=== PATIENT | female | born 2000 | race Two or more races ===

== ENCOUNTER 2020-11-02 09:40 | Observation (INO) | payer MEDICAID ==
[2020-11-02] MEDS ORDERED: PREN-96 PO (12:57)
== END 2020-11-02 13:19 | disposition home or self-care (01) ==
LOC: LDRP 09:40
PROVIDERS: ADMIT Obstetrics & Gynecology; ATTEND Obstetrics & Gynecology
DX: O36.5930 Maternal care for other known or suspected poor fetal growth, third trimester, not applicable or unspecified (principal); Z3A.37 37 weeks gestation of pregnancy
CPT/HCPCS: 59025; 76805; 76818; 81002; G0378

== ENCOUNTER 2020-11-04 16:40 | Inpatient (IN) | payer MEDICAID ==
[~2020-11-04] VITALS: Ht 167.6 cm; Wt 60.3 kg
[~2020-11-04 16:40] MED LIST: PREN-96 PO
[2020-11-04] MEDS ORDERED: LACT. RINGERS/OXYTOCIN 20UNITS 1,000 ML IV ONE (17:15)
[2020-11-04] MEDS ORDERED: METHYLERGONOVINE MALEATE 0.2 MG/ML AMP IM ONE (17:15)
[2020-11-04] MEDS ORDERED: IBUPROFEN 600 MG TAB PO PRN (17:15)
[2020-11-04] MEDS ORDERED: ACETAMINOPHEN 325 MG TAB PO PRN (17:15)
[2020-11-04] MEDS ORDERED: WITCH HAZEL-GLYCERIN PAD TOP PRN (17:30)
[2020-11-04] MEDS ORDERED: PHISODERM TOP SOLN 240ML BTL TOP PRN (17:30)
[2020-11-04] MEDS ORDERED: LIDOCAINE 2%HCL (LOCAL ANESTH.) INJ 20ML MDV IJ ONE (17:30)
[2020-11-04] MEDS ORDERED: DERMOPLAST 60ML BOTTLE TOP PRN (17:30)
[2020-11-04] MEDS ORDERED: LACT. RINGERS/OXYTOCIN 20UNITS 1,000 ML IV SCH (18:15)
[2020-11-04 18:25] LABS: Basophils # (auto) 0.1 10 ^3/uL (0-0.2); Basophils % (auto) 0.4 % (0.0-2.0); Eosinophils # (auto) 0 10 ^3/uL (0-0.8); Eosinophils % (auto) 0.1 % (0.0-7.0); Hematocrit 32.7 % (36.0-46.0); Hemoglobin 11.2 g/dL (12.2-16.2); Lymphocytes # (auto) 1.5 10 ^3/uL (0.4-5.4); Lymphocytes % (auto) 9.1 % (10.0-50.0); Mean Corpuscular Hemoglobin 29.1 pg (28.0-32.0); Mean Corpuscular Hgb Conc. 34.3 g/dL (32.0-36.0); Mean Corpuscular Volume 84.7 fL (80.0-100.0); Monocytes # (auto) 0.8 10 ^3/uL (0-1.3); Monocytes % (auto) 4.6 % (0.0-12.0); Neutrophils # (auto) 14.3 10 ^3/uL (1.6-8.6); Neutrophils % (auto) 85.8 % (37.0-80.0); Platelet Count (auto) 244 10^3/uL (140-450); Red Blood Cells 3.86 10^6/uL (4.0-5.20); Red Cell Distribution Width 13.6 % (11.8-14.3); White Blood Cell 16.6 10^3/uL (4.4-10.8)
[2020-11-04 18:39] LABS: Albumin 2.3 g/dL (3.4-5.0); Calcium 7.7 mg/dL (8.5-10.1); Potassium 3.6 mmol/L (3.5-5.1)
[2020-11-04 18:40] LABS: INR 1.02 (0.9-1.15); Partial Thromboplastin Time 26.8 sec (23.0-31.2)
[2020-11-04 18:43] LABS: Urine Bacteria NONE SEEN /hpf (None Seen); Urine Blood 1+ /uL (Negative); Urine Mucus FEW (None Seen); Urine Specific Gravity 1.021 (1.001-1.035); Urine WBC 1 /hpf (0 - 5)
[2020-11-04 18:45] LABS: BUN/Creatinine Ratio 13.7; Bilirubin, Total 0.3 mg/dL (0.2-1.0)
[2020-11-04 18:59] LABS: Alcohol, Urine < 3.0 mg/dL (0-10); Amphetamine Screen, Urine NEGATIVE (NEGATIVE); Barbiturate Scree,Urine NEGATIVE (NEGATIVE); Benzodiazephine Screen, Urine NEGATIVE (NEGATIVE); Cannabinoid Screen, Urine NEGATIVE (NEGATIVE); Cocaine Screen, Urine NEGATIVE (NEGATIVE); Opiate Scree,Urine NEGATIVE (NEGATIVE); Phencyclidine Screen, Urine NEGATIVE (NEGATIVE)
[2020-11-04 23:25] VITALS: BP 109/65
[2020-11-05 03:11] VITALS: BP 122/76
[2020-11-05 07:10] VITALS: BP 112/67
[2020-11-05 11:10] VITALS: BP 101/64
[2020-11-05 15:18] VITALS: BP 119/64
[2020-11-05 19:12] VITALS: BP 116/85
[2020-11-05 20:23] VITALS: BP 116/78
[2020-11-06 06:06] LABS: RPR Non Reactive (Non Reactive)
== END 2020-11-05 20:23 | disposition home or self-care (01) | DRG 560 ==
LOC: LDRP 16:40
PROVIDERS: ADMIT Obstetrics & Gynecology; ATTEND Obstetrics & Gynecology
PROC: 10E0XZZ Delivery of Products of Conception, External Approach (ICD-10-PCS; principal; 2020-11-04)
DX: Z39.0 Encounter for care and examination of mother immediately after delivery (principal); Z20.822 Contact with and (suspected) exposure to COVID-19
CPT/HCPCS: 36415; 59414; 80053; 80307; 81001; 85025; 85610; 85730; 86592; 86850; 86900; 86901; 87426; 96365; 96366; G0378

== ENCOUNTER 2022-10-01 16:28 | Emergency (ER) | payer MEDICAID ==
[~2022-10-01] VITALS: Ht 165.1 cm; Wt 59.8 kg
[2022-10-01 17:11] VITALS: BP 105/72
[2022-10-01] MEDS ORDERED: ACETAMINOPHEN 325 MG TAB PO ONE (17:15)
[2022-10-01] MEDS ORDERED: SODIUM CHLORIDE 0.9% 1,000 ML IV ONE (17:15)
[2022-10-01] MEDS ORDERED: IBUPROFEN 600 MG TAB PO ONE (17:30)
[2022-10-01] MEDS ORDERED: cefTRIAXone 1GM/50ML D5W 50 ML IV ONE (17:30)
[2022-10-01] MEDS ORDERED: ONDANSETRON HCL 4 MG/2 ML VIAL IV ONE (17:30)
[2022-10-01 17:44] LABS: Urine Bacteria NONE SEEN /hpf (None Seen); Urine Blood TRACE /uL (Negative); Urine Mucus FEW (None Seen); Urine Specific Gravity 1.033 (1.001-1.035); Urine WBC 11 /hpf (0 - 5)
[2022-10-01] MEDS ORDERED: KETOROLAC TROMETH 30 MG/ML 1ML VIAL IV ONE (18:00)
[2022-10-01] MEDS ORDERED: CIPR-173 PO (18:06)
[2022-10-01] MEDS ORDERED: IBUP600T27 PO (18:06)
== END 2022-10-01 18:33 | disposition home or self-care (01) ==
LOC: ER 16:28
DX: N39.0 Urinary tract infection, site not specified (principal); J03.90 Acute tonsillitis, unspecified; M62.830 Muscle spasm of back; M54.50 Low back pain, unspecified; Z32.02 Encounter for pregnancy test, result negative; Z88.6 Allergy status to analgesic agent
CPT/HCPCS: 81001; 81025; 96365; 96375; 99284; J0696; J1885; J2405; J7030

== ENCOUNTER 2023-04-26 21:19 | Emergency (ER) | payer MEDICAID ==
[~2023-04-26] VITALS: Ht 160 cm; Wt 58.0 kg
[~2023-04-26 21:19] MED LIST changes: +CIPR-173 PO; +IBUP-1454 PO
[2023-04-27] MEDS ORDERED: IBUP-1455 PO (00:09)
[2023-04-27] MEDS ORDERED: IBUPROFEN 800 MG TAB PO ONE (00:15)
[2023-04-27] MEDS ORDERED: MUPI2CRE17 EX (00:16)
[2023-04-27 01:26] VITALS: BP 109/74; PULSE 76; RESP 18; TEMP 98; O2SAT 99
== END 2023-04-27 01:35 | disposition home or self-care (01) ==
LOC: ER 21:19
DX: S99.912A Unspecified injury of left ankle, initial encounter (principal); M25.572 Pain in left ankle and joints of left foot; Z79.899 Other long term (current) drug therapy; W18.39XA Other fall on same level, initial encounter; Y93.89 Activity, other specified; Y92.89 Other specified places as the place of occurrence of the external cause; Y99.8 Other external cause status
CPT/HCPCS: 29515; 73610

== ENCOUNTER 2023-12-10 22:15 | Emergency (ER) | payer MEDICAID ==
[~2023-12-10] VITALS: Ht 162.6 cm; Wt 60.1 kg
[~2023-12-10 22:15] MED LIST changes: +IBUP-1455 PO; +MUPI2CRE17 EX
[2023-12-10 22:28] VITALS: BP 137/81; PULSE 101; RESP 18; TEMP 98.7; O2SAT 98
[2023-12-10 23:06] LABS: Urine Bacteria None Seen /hpf (None Seen)
[2023-12-10 23:19] LABS: Urine Blood 3+ /uL (Negative); Urine Clarity Turbid (Clear); Urine Color LIGHT RED (Yellow); Urine Protein, UAD TRACE (Negative); Urine Specific Gravity 1.017 (1.001-1.035); Urine Urobilinogen Normal (Negative); Urine WBC 73 /hpf (0 - 5)
[2023-12-10 23:38] LABS: Basophils # (auto) 0 10 ^3/uL (0-0.2); Basophils % (auto) 0.3 % (0.0-2.0); Eosinophils # (auto) 0.1 10 ^3/uL (0-0.8); Eosinophils % (auto) 1.1 % (0.0-7.0); Hematocrit 41.2 % (36.0-46.0); Hemoglobin 13.9 g/dL (12.2-16.2); Lymphocytes # (auto) 2.7 10 ^3/uL (0.4-5.4); Lymphocytes % (auto) 26.6 % (10.0-50.0); Mean Corpuscular Hemoglobin 29.6 pg (28.0-32.0); Mean Corpuscular Hgb Conc. 33.8 g/dL (32.0-36.0); Mean Corpuscular Volume 87.8 fL (80.0-100.0); Monocytes # (auto) 0.6 10 ^3/uL (0-1.3); Monocytes % (auto) 5.8 % (0.0-12.0); Neutrophils # (auto) 6.8 10 ^3/uL (1.6-8.6); Neutrophils % (auto) 66.2 % (37.0-80.0); Red Cell Distribution Width 13.4 % (11.8-14.3); White Blood Cell 10.2 10^3/uL (4.4-10.8)
[2023-12-11 00:06] LABS: Alanine Aminotransferase 21 U/L (7-40); Albumin 4.4 g/dL (3.2-4.8); Alkaline Phosphatase 70 U/L (46-116); Anion Gap 7 (5-15); Aspartate Aminotransferase 17 U/L (13-40); BUN/Creatinine Ratio 12.3 (10.0-20.0); Bilirubin, Total 0.4 mg/dL (0.2-1.0); Blood Urea Nitrogen 7 mg/dL (9-23); Calcium 9.4 mg/dL (8.7-10.4); Carbon Dioxide 23 mmol/L (20-30); Chloride 109 mmol/L (98-107); Glucose 103 mg/dL (74-106); Potassium 3.6 mmol/L (3.5-5.1); Sodium 139 mmol/L (136-145); Total Protein 7.5 g/dL (5.7-8.2)
== END 2023-12-11 01:29 | disposition home or self-care (01) ==
LOC: ER 22:15
DX: N93.8 Other specified abnormal uterine and vaginal bleeding (principal); R10.2 Pelvic and perineal pain; R51.9 Headache, unspecified; Z32.02 Encounter for pregnancy test, result negative
CPT/HCPCS: 36415; 80053; 81001; 81025; 84702; 85025; 86850; 86900; 86901

== ENCOUNTER 2024-03-22 14:02 | Emergency (ER) | payer MEDICAID ==
[~2024-03-22] VITALS: Ht 160 cm; Wt 60.8 kg
[2024-03-22 16:00] LABS: Urine Bacteria None Seen /hpf (None Seen)
[2024-03-22] MEDS ORDERED: ACETAMINOPHEN 500 MG TAB PO ONE (16:00)
[2024-03-22 16:13] VITALS: BP 139/97; PULSE 93; RESP 18; TEMP 99.2; O2SAT 97
[2024-03-22 16:27] LABS: Urine Amorphous Crystal FEW /hpf (None Seen); Urine Blood Negative /uL (Negative); Urine Clarity Ex.Turbid (Clear); Urine Color Light-Brown (Yellow); Urine Mucus FEW (None Seen); Urine Protein, UAD Negative (Negative); Urine Specific Gravity 1.019 (1.001-1.035); Urine Urobilinogen Normal (Negative); Urine WBC 9 /hpf (0 - 5)
[2024-03-22] MEDS ORDERED: IBUP1TAB4 PO (16:33)
[2024-03-22] MEDS: KETOROLAC TROMETH 30 MG/ML 1ML VIAL IM ONE (16:46)
== END 2024-03-22 17:15 | disposition home or self-care (01) ==
LOC: ER 14:02
DX: R51.9 Headache, unspecified (principal); R11.0 Nausea
CPT/HCPCS: 81001; 81025; 96372; 99283; J1885

== ENCOUNTER 2025-03-06 13:43 | Emergency (ER) | payer MEDICAID ==
[~2025-03-06] VITALS: Ht 160 cm; Wt 56.4 kg
[~2025-03-06 13:43] MED LIST changes: +IBUP1TAB4 PO
[2025-03-06 13:48] VITALS: BP 112/71; PULSE 117; RESP 16; TEMP 98.7; O2SAT 98
[2025-03-06 14:16] LABS: Hematocrit 39.1 % (36.0-46.0); Hemoglobin 13.6 g/dL (12.2-16.2); Mean Corpuscular Hemoglobin 29.7 pg (28.0-32.0); Mean Corpuscular Volume 85.0 fL (80.0-100.0); Nucleated Red Blood Cells % 0.0 %
[2025-03-06 14:23] LABS: Chloride 106 mmol/L (98-107); Potassium 3.9 mmol/L (3.5-5.1); Sodium 137 mmol/L (136-145)
[2025-03-06 14:24] LABS: Anion Gap 11 (5-15); Calcium 8.7 mg/dL (8.7-10.4); Carbon Dioxide 20 mmol/L (20-31)
[2025-03-06 14:29] LABS: BUN/Creatinine Ratio 14.0 (10.0-20.0); Glucose 87 mg/dL (74-106)
[2025-03-06 14:30] LABS: Blood Urea Nitrogen 7 mg/dL (9-23); Lipase 37 U/L (12-53)
--- NOTE | 2025-03-06 14:39 | DVH ---
Procedure: US OB ULTRASOUND COMP LESS 14WKS Study Date and Requested Time: 03/06/2025 02:02 PM Study Description: US OB ULTRASOUND COMP LESS 14WKS History: n/v/d, 13 wk preg Comparison: OB ULTRASOUND COMP GTR 14 WKS on DOS: 11/02/20 Technique: Multiple high resolution trotter-scale images obtained of the uterus, fetus, and other gestat ional components with M-mode scanning for evaluation of heart rate. Findings: Single live intrauterine with gestational sac, and fetus visualized. heart rate of 1 71 bpm. Estimated gestational age 13 weeks/ 1 day based on crown-rump length of 6.93 cm. Placenta is visualized forming posteriorly Uterus measures 4.3 x 9.5 x 5.9 cm in size. Cervical os appears closed. Bilateral ovaries are not visualized. No evidence of free fluid in the cul-de-sac. Impression: Single live intrauterine with heart rate of 171 bpm. Estimated gestational age 13 wee ks/ 1 day with estimated date of confinement 09/10/2025. Bilateral ovaries are not visualized.
[2025-03-06] MEDS: SODIUM CHLORIDE 0.9% 1,000 ML IV ONE (15:30)
--- NOTE | 2025-03-06 15:34 | ED.PDOC ---
GI ASSESSMENT HPI Comments 24 year old female presents to the ED with a chief compliant of nausea/vomiting onset today (03/06/25) around 05:00. Patient states she woke up this morning around 05:00, experiencing nausea, vomiting, diarrhea. She is currently 13 weeks , follows up with OBGYN, takes pre- vitamins. P:2. Denies any PMHx as well as vaginal bleeding, vaginal discharge, abdominal pain, dysuria, hematuria, hematemesis, fever, chills, headache, dizziness. No other symptoms or modifying factors present at this time. Chief Complaint: Nausea/Vomiting Time Seen by MD: 15:30 Primary Care Provider: [facility] Reviewed Notes: Medications, Allergies Allergies: Coded Allergies: NO KNOWN ALLERGIES (Unverified , 11/04/20) Home Meds Active Scripts Ibuprofen Micronized (Ibuprofen) 400 Mg Tab, 400 MG PO Q4HPRN PRN, #30 TAB Prov:WILLI CLEMENTE PAC 03/22/24 Mupirocin Calcium (Topical) (MUPIROCIN) 2 % Cre, 2 % EX TID for 7 Days, #1 CRE Prov:TAYLOR BARNETTP 04/27/23 Ibuprofen Micronized (Ibuprofen) 800 Mg Tab, 800 MG PO TID PRN for 30 Days, #90 TAB Prov:TAYLOR BARNETTP 04/27/23 Ibuprofen (Ibuprofen) 600 Mg Tab, 1 TAB PO QID, #30 TAB Prov:BUDDY JAMES 10/01/22 Ciprofloxacin Hcl (Cipro) 500 Mg Tab, 1 TAB PO BID, #20 TAB Prov:BUDDY JAMES 10/01/22 Reported Medications Vit W/ Ferrous Fumara ( One Daily) Daily Tab, 1 TAB PO DAILY, #90 TAB 3 Refills 11/02/20 Information Source: Patient, Spouse Mode of Arrival: Ambulatory Timing: Hours Duration: Since onset Prehospital treatment: None Quality: Sharp Severity: Moderate Recent: None Recent Hx of: Current Pain Location: Suprapubic Modifying Factors: Nothing Associated sign and symptoms: Nausea, Vomiting, Diarrhea, Abdominal Pain Past Medical History PAST MEDICAL HISTORY: Denies Surgical History: Denies all surgeries HAT MAKER History: Denies all HAT MAKER Hx Family History Family History: Reviewed,noncontributory to illness Social History Smoker: Non-Smoker Alcohol: Denies ETOH Use Drugs: Denies Drug Use Lives In: Home Constitutional: denies: chills, diaphoresis, fatigue, fever, malaise, sweats, weakness, others EENTM: denies: blurred vision, double vision, ear bleeding, ear discharge, ear drainage, ear pain, ear ringing, eye pain, eye redness, hearing loss, mouth pain, mouth swelling, nasal discharge, nose bleeding, nose congestion, nose pain, photophobia, tearing, throat pain, throat swelling, voice changes, others Respiratory: denies: cough, hemoptysis, orthopnea, SOB at rest, shortness of breath, SOB with excertion, stridor, wheezing, others Cardiovascular: denies: chest pain, dizzy spells, diaphoresis, Dyspnea on exertion, edema, irregular heart beat, left arm pain, lightheadedness, palpitations, PND, syncope, others Gastrointestinal: reports: abdominal pain, diarrhea, nausea, vomiting; denies: abdomen distended, blood streaked bowels, constipated, dysphagia, difficulty swallowing, hematemesis, melena, poor appetite, poor fluid intake, rectal bleeding, rectal pain, others Genitourinary: reports: ; denies: abnormal vagina bleeding, burning, dyspareunia, dysuria, flank pain, frequency, hematuria, incontinence, pain, vagina discharge, urgency, others Neurological: denies: dizziness, fainting, headache, left sided numbness, left sided weakness, numbness, paresthesia, pre-existing deficit, right sided numbness, right sided weakness, seizure, speech problems, tingling, tremors, weakness, others Musculoskeletal: denies: back pain, gout, joint pain, joint swelling, muscle pain, muscle stiffness, neck pain, others Integumetry: denies: bruises, change in color, change in hair/nails, dryness, laceration, lesions, lumps, rash, wounds, others Allergic/Immunocompromised: denies: Difficulty Healing, Frequent Infections, Hives, Itching, others Hematologic/Lymphatic: denies: anemia, blood clots, easy bleeding, easy bruising, swollen glands, others Endocrine: denies: excessive hunger, excessive sweating, excessive thirst, excessive urination, flushing, intolerance to cold, intolerance to heat, unexplained weight gain, unexplained weight loss, others Psychiatric: denies: anxiety, bipolar disorder, depression, hopeless, panic disorder, schizophrenia, sleepless, suicidal, others All Other Systems: Reviewed and Negative Physical Exam General Appearance: Normal HEENT: Normal ENT Inspection, Pharynx Normal, TMs Normal Neck: Full Range of Motion, Non-Tender, Normal, Normal Inspection Respiratory: Chest Non-Tender, Lungs Clear, No Accessory Muscle Use, No Respiratory Distress, Normal Breath Sounds Cardiovascular: No Edema, No JVD, No Murmur, No Gallop, Normal Peripheral Pulses, Regular Rate/Rhythm Breast Exam: Deferred Gastrointestinal: No Organomegaly, Non Tender, No Pulsatile Mass, Normal Bowel Sounds, Soft Genitalia: Deferred Pelvic: Deferred Rectal: Deferred Extremities: No calf tenderness, Normal capillary refill, Normal inspection, Normal range of motion, Non-tender, No pedal edema Musculoskeletal : Apperance: Normal Neurologic: Alert, heat treat technician II-XII nml as Tested, No Motor Deficits, Normal Affect, Normal Mood, No Sensory Deficits Cerebellar Function: Normal Reflexes: Normal Skin: Dry, Normal Color, Warm Lymphatic: No Adenopathy Was a procedure done? Was a procedure done?: No GI differential Dx Differential Diagnosis: Appendicitis, Complete , Incomplete , Inevitable , Missed , Threatened , Abruptio placentae, Bowel Obstruction, Cholecystitis, Dysmenorrhea, Ectopic , Gastroenteritis, Ovarian cyst/torsion, PID, UTI, Electrolyte Imbalance, , Kidney Stone X-Ray, Labs, Meds, VS Vital Signs Date Time Temp Pulse Resp B/P (MAP) Pulse Ox O2 Delivery O2 Flow Rate FiO2 03/06/25 13:48 98.7 117 16 112/71 98 98.7 Lab Test 03/06/25 14:05 Range/Units White Blood Count 10.9 H 4.4-10.8 10^3/uL Red Blood Count 4.60 4.0-5.20 10^6/uL Hemoglobin 13.6 12.2-16.2 g/dL Hematocrit 39.1 36.0-46.0 % Mean Corpuscular Volume 85.0 80.0-100.0 fL Mean Corpuscular Hemoglobin 29.7 28.0-32.0 pg Mean Corpuscular Hemoglobin Concent 34.9 32.0-36.0 g/dL Red Cell Distribution Width 14.6 H 11.8-14.3 % Platelet Count 247 140-450 10^3/uL Mean Platelet Volume 8.2 6.9-10.8 fL Neutrophils (%) (Auto) 91.4 H 37.0-80.0 % Lymphocytes (%) (Auto) 4.7 L 10.0-50.0 % Monocytes (%) (Auto) 3.6 0.0-12.0 % Eosinophils (%) (Auto) 0.1 0.0-7.0 % Basophils (%) (Auto) 0.2 0.0-2.0 % Neutrophils # (Auto) 10.0 H 1.6-8.6 10 ^3/uL Lymphocytes # (Auto) 0.5 0.4-5.4 10 ^3/uL Monocytes # (Auto) 0.4 0-1.3 10 ^3/uL Eosinophils # (Auto) 0 0-0.8 10 ^3/uL Basophils # (Auto) 0 0-0.2 10 ^3/uL Nucleated Red Blood Cells 0.0 % Sodium Level 137 136-145 mmol/L Potassium Level 3.9 3.5-5.1 mmol/L Chloride Level 106 98-107 mmol/L Carbon Dioxide Level 20 20-31 mmol/L Anion Gap 11 5-15 Blood Urea Nitrogen 7 L 9-23 mg/dL Creatinine 0.50 L 0.550-1.02 mg/dL Glomerular Filtration Rate Calc 134 >90 mL/min BUN/Creatinine Ratio 14.0 10.0-20.0 Serum Glucose 87 74-106 mg/dL Calcium Level 8.7 8.7-10.4 mg/dL Lipase 37 12-53 U/L Current Medications Medications (Trade) Dose Ordered Sig/Minh Route Start Time Stop Time Status Last Admin Sodium Chloride 1,000 ml @ 1,000 mls/hr Q1H ONCE IV 03/06/25 15:30 03/06/25 16:29 DC 03/06/25 15:[address] [address] Ph: [phone] DIAGNOSTIC IMAGING Diagnostic Imaging Report : [id number] Signed PATIENT: YOLIS QIUSATHISHCT: [id number] UNIT: [id number] : 2000 LOC: ER ROOM / BED: / AGE / SEX: 24 / F ADM STATUS: REG ER SERVICE [id number] ORDERING PHYSICIAN: MADISON WHEATLEY MD PROCEDURE(s): OB4US - OB ULTRASOUND COMP LESS 14WKS REASON: n/v/d, 13 wk preg ORDER NUMBER(s): [id number], ACCESSION NUMBER(s): [id number] Procedure: US OB ULTRASOUND COMP LESS 14WKS Study Date and Requested Time: 03/06/2025 02:02 PM Study Description: US OB ULTRASOUND COMP LESS 14WKS History: n/v/d, 13 wk preg Comparison: OB ULTRASOUND COMP GTR 14 WKS on DOS: 11/02/20 Technique: Multiple high resolution trotter-scale images obtained of the uterus, fetus, and other gestational components with M-mode scanning for evaluation of heart rate. Findings: Single live intrauterine with gestational sac, and fetus visualized. heart rate of 171 bpm. Estimated gestational age 13 weeks/ 1 day based on crown-rump length of 6.93 cm. Placenta is visualized forming posteriorly Uterus measures 4.3 x 9.5 x 5.9 cm in size. Cervical os appears closed. Bilateral ovaries are not visualized. No evidence of free fluid in the cul-de-sac. Impression: Single live intrauterine with heart rate of 171 bpm. Estimated gestational age 13 weeks/ 1 day with estimated date of confinement 09/10/2025. Bilateral ovaries are not visualized. ATED BY: CLOTILDE FRY DO DICTATED DATE/TIME: 03/06/25 1437 SIGNED BY: CLOTILDE FRY DO SIGNED DATE/TIME: 03/06/25 1437 CC: X-Ray, Labs, Meds, VS Comment 24-year-old female currently approximately 13 weeks here today for nausea, vomiting, and diarrhea. Vital signs stable, afebrile. Patient was initially tachycardic however this resolved on my re-evaluation, heart rate in the 80s/high 70s. O2 sat 99% on room air. Afebrile. Physical exam without any acute findings. No abdominal tenderness to palpation. No CVAT bilaterally. Labs overall reassuring without evidence of significant electrolyte abnormality. Ultrasound with evidence of single live IUP without evidence of abnormalities. Patient was given fluids and Zofran and stated that her symptoms were significantly improved afterwards and was requesting to be discharged. Patient has an appointment with the loan operations specialist later this week. Return precautions provided for abdominal pain, vaginal bleeding or discharge, dysuria or hematuria, fevers, persistent vomiting, or any other new or concerning symptoms. Patient and partner expressed understanding. Patient was discharged in stable condition ambulating with a steady gait and in no distress. Time of 1ST Reevaluation: 16:00 Reevaluation 1ST: Unchanged Time of 2ND Reevaluation: 17:13 Reevaluation 2ND: Improved Patient Education/Counseling: Diagnosis, Treatment, Prognosis Family Education/Counseling: Diagnosis, Treatment, Prognosis SEPSIS Sepsis Screen Date sepsis recognized/suspect: Mar 06, 2025 Time Sepsis recognized/suspect: 1344 Recent Procedure: No On Antibiotic Therapy: No Respiratory Rate >20: No Heart Rate >90: Yes Temp<36 C (96.8 F) or >38.3 C: No SBP <90 or MAP <65 mmHG: No New Acute Mental Status Change: No Is the patient on CPAP, BIPAP,: No Physician Orders Urinalysis (03/06/25 13:57) Test, Urine (03/06/25 13:57) Ob Ultrasound Comp Less 14wks (03/06/25 13:57) Vital Signs Date Time Temp Pulse Resp B/P (MAP) Pulse Ox O2 Delivery O2 Flow Rate FiO2 03/06/25 13:48 98.7 117 16 112/71 98 98.7 Laboratory Tests Test 03/06/25 14:05 White Blood Count 10.9 10^3/uL (4.4-10.8) H Medications Medications Dose Ordered Sig/Minh Route Start Time Stop Time Status Last Admin Dose Admin Sodium Chloride 1,000 ml @ 1,000 mls/hr Q1H ONCE IV 03/06/25 15:30 03/06/25 16:29 DC 03/06/25 15:30 Departure 1 Departure Time of Disposition: 17:14 Impression: Primary Impression: First trimester Additional Impressions: Nausea vomiting and diarrhea Viral gastroenteritis Disposition: 01 HOME / SELF CARE / HOMELESS Condition: Stable Discharged With: Self, Significant Other Critical Care Note Critical Care Time?: No Stability Stability form required: No Heart Score Heart Score: Heart Score Response (Comments) Value History N/A 0 EKG N/A 0 Age N/A 0 Risk Factors N/A 0 Troponin N/A 0 Total 0 I personally scribed for MADISON WHEATLEY MD ([email or web address]) on 03/06/25 at 15:34. Elec tronically submitted by Shelley Perdomo ([email or web address]). MADISON WHEATLEY MD Mar 06, 2025 15:34
[2025-03-06] MEDS: ONDANSETRON HCL 4 MG/2 ML VIAL IV ONE (17:20)
== END 2025-03-06 17:37 | disposition home or self-care (01) ==
LOC: ER 13:43
DX: O21.9 Vomiting of pregnancy, unspecified (principal); R19.7 Diarrhea, unspecified; A08.4 Viral intestinal infection, unspecified; Z3A.13 13 weeks gestation of pregnancy
CPT/HCPCS: 36415; 76801; 80048; 83690; 85025; 96361; 96374; 99285; J2405; J7030